=== PATIENT | female | born 2000 | race Caucasian/White ===

== ENCOUNTER → 2020-01-19 | Outpatient (CLI) | payer OTHER, SELFPAY ==
[2020-01-19 13:37] LABS: T4 Total, Thyroxin 15.2 ug/dL (4.8-13.9); Thyroid Stim Hormone (TSH) 1.28 uIU/mL (0.358-3.74)
== END | disposition home or self-care (01) ==
LOC: LAB 12:54
PROVIDERS: PCP Pediatrics; Referring Provider Internal Medicine Cardiovascular Disease; Visit Provider Internal Medicine Cardiovascular Disease
DX: R00.0 Tachycardia, unspecified (principal); R00.2 Palpitations
CPT/HCPCS: 36415; 84436; 84443

== ENCOUNTER → 2020-01-22 | Outpatient (CLI) | payer OTHER, SELFPAY ==
--- NOTE | 2020-01-22 09:56 | ECHOD_ITS ---
Reason For Study: Palpitations Procedure This was a 2D Doppler, Color Flow transthoracic echocardiogram. Exam performed in department. Left Ventricle Normal size and thickness. The estimated ejection fraction is 65 %. Normal diastology for age. No regional wall motion abnormalities noted. Right Ventricle Normal size and thickness. A moderator band is seen in the right ventricle. Normal systolic function. Atria Normal left atrium. Normal right atrium. Normal atrial septum. Mitral Valve The mitral valve is structurally normal. No prolapse or stenosis seen. Tricuspid Valve Normal tricuspid valve. Unable to estimate RV systolic pressure due to insufficient tricuspid regurgitant envelope. Aortic Valve Trisinus/trileaflet aortic valve. Normal aortic valve. Pulmonic Valve Normal pulmonic valve. Great Vessels Normal aortic root. Normal arch. Normal inferior vena cava. Inferior vena cava collapse with sniff. Pericardium/Pleural No pericardial effusion. MMode/2D Measurements & Calculations LVIDd: 4.2 cm IVSd: 0.76 cm Ao root diam: 1.9 cm LVIDs: 2.9 cm LVPWd: 0.76 cm RVDd: 2.4 cm FS: 31.7 % LAV(MOD-bp): 12.2 ml LVAd ap4: 22.8 cm2 SV(MOD-sp4): 38.2 ml LAV(MOD-bp) Indexed: 7.1 ml/m2 EDV(MOD-sp4): 57.6 ml LAV(MOD-sp2): 10.0 ml EDV(sp4-el): 59.6 ml LAV(MOD-sp4): 12.5 ml LVAs ap4: 12.1 cm2 ESV(MOD-sp4): 19.3 ml ESV(sp4-el): 20.0 ml EF(MOD-sp4): 66.4 % EF(sp4-el): 66.5 % SV(sp4-el): 39.6 ml LA A4 area: 7.5 cm2 LA dimension(2D): 2.3 cm RA A4 area: 6.8 cm2 Doppler Measurements & Calculations MV E max dimitris: 101.4 cm/sec Lat Peak E' Dimitris: 20.0 cm/sec Med Peak E' Dimitris: 14.7 cm/sec MV A max dimitris: 65.2 cm/sec E/E' lat: 5.1 E/E' med: 6.9 MV E/A: 1.6 Ao V2 max: 126.7 cm/sec LV V1 max: 110.9 cm/sec PA V2 max: 103.4 cm/sec Ao max P.4 mmHg LV V1 max P.9 mmHg Ao V2 mean: 91.3 cm/sec Ao mean P.7 mmHg Ao V2 VTI: 22.2 cm Interpretation Summary The estimated ejection fraction is 65 %. Normal diastology for age. Unable to estimate RV systolic pressure due to insufficient tricuspid regurgitant envelope. There is no comparison study available. Ordering Physician: Manpreet Garcia Referring Physician: Macrina Bonilla Performed By: Suzie Bhatti, ANA ROSA, RVT
== END | disposition home or self-care (01) ==
LOC: CVS 09:56
PROVIDERS: PCP Pediatrics; Referring Provider Internal Medicine Cardiovascular Disease; Visit Provider Internal Medicine Cardiovascular Disease
DX: R00.0 Tachycardia, unspecified (principal); R00.2 Palpitations
CPT/HCPCS: 93306

== ENCOUNTER → 2020-06-30 | Outpatient (CLI) | payer OTHER, SELFPAY | END | disposition home or self-care (01) | LOC: MTDU 17:46 | PROVIDERS: PCP Pediatrics; Referring Provider Pediatrics; Visit Provider Pediatrics | DX: R19.7 Diarrhea, unspecified (principal) | CPT/HCPCS: 87635; 94799; U0003 ==

== ENCOUNTER → 2020-07-25 | Outpatient (CLI) | payer OTHER, SELFPAY | END | disposition home or self-care (01) | LOC: MTDU 17:21 | PROVIDERS: PCP Pediatrics; Referring Provider Family Medicine; Visit Provider Family Medicine | DX: Z20.828 Contact with and (suspected) exposure to other viral communicable diseases (principal) | CPT/HCPCS: 87635; C9803; U0003 ==

== ENCOUNTER 2020-10-17 17:30 | Outpatient (RCR) | payer OTHER, SELFPAY ==
[2020-08-12 10:38] VITALS: BMI 21.4
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
== END 2020-10-17 19:00 | disposition home or self-care (01) ==
LOC: PT 17:30
PROVIDERS: PCP Pediatrics; Visit Provider Family Medicine
DX: S16.1XXD Strain of muscle, fascia and tendon at neck level, subsequent encounter (principal); V89.2XXD Person injured in unspecified motor-vehicle accident, traffic, subsequent encounter
CPT/HCPCS: 97035; 97110; 97140; 97161

== ENCOUNTER → 2020-11-29 15:01 | Outpatient (CLI) | payer OTHER, SELFPAY ==
[2020-08-12 10:38] VITALS: BMI 21.4
== END ==
PROVIDERS: PCP Family Medicine; Visit Provider Family Medicine
DX: Z20.822 Contact with and (suspected) exposure to COVID-19 (principal)
CPT/HCPCS: 87635; U0003

== ENCOUNTER 2021-11-09 15:56 | Outpatient (CLI) | payer OTHER, SELFPAY | END 2021-11-09 23:59 | disposition short-term general hospital (02) | PROVIDERS: PCP Family Medicine; Visit Provider Family Medicine | DX: U07.1 COVID-19 (principal) | CPT/HCPCS: 87635; U0003; U0005 ==